=== PATIENT | male | born 1970 | race Hispanic/Latino ===

== ENCOUNTER 2024-09-08 18:52 | Emergency (ER) | payer MEDICARE ==
[~2024-09-08] VITALS: Ht 191.8 cm; Wt 93.0 kg
[2024-09-08] MEDS ORDERED: PREDNISONE 20 MG TAB ONE (19:04)
[2024-09-08] MEDS ORDERED: KETOROLAC TROMETHAMINE 60 MG/2 ML VIAL ONE (19:04)
[2024-09-08] MEDS: KETOROLAC TROMETHAMINE 60 MG/2 ML VIAL IM STA (19:25)
[2024-09-08] MEDS: PREDNISONE 20 MG TAB PO STA (19:26)
[2024-09-08 20:40] VITALS: PULSE 70; RESP 16; TEMP 98.4
[2024-09-08 23:09] VITALS: BP 131/85; PULSE 70; RESP 16; TEMP 98.4; O2SAT 100
== END 2024-09-08 20:15 | disposition home or self-care (01) ==
LOC: ER 19:07
DX: R51.9 Headache, unspecified (principal); M54.2 Cervicalgia; W20.8XXA Other cause of strike by thrown, projected or falling object, initial encounter; Y92.89 Other specified places as the place of occurrence of the external cause
CPT/HCPCS: 70450; 72125; 99283; J1885; J7512

== ENCOUNTER 2024-09-20 19:37 | Emergency (ER) | payer MEDICARE ==
[2024-09-20 19:37] VITALS: PULSE 79; RESP 16; TEMP 98.4
[2024-09-20] MEDS ORDERED: MEDROL4 M2 PO (21:49)
[2024-09-20] MEDS: KETOROLAC TROMETHAMINE 60 MG/2 ML VIAL IM ONE (21:57)
[2024-09-20 21:59] VITALS: BP 122/89; PULSE 78; RESP 16; TEMP 98.3; O2SAT 100
== END 2024-09-20 22:10 | disposition home or self-care (01) ==
LOC: ER 20:40
DX: M54.2 Cervicalgia (principal); M54.6 Pain in thoracic spine; M54.32 Sciatica, left side; G89.29 Other chronic pain; F17.210 Nicotine dependence, cigarettes, uncomplicated
CPT/HCPCS: 70450; 72125; 99283; J1885

== ENCOUNTER 2024-12-01 20:38 | Emergency (ER) | payer MEDICARE, OTHER ==
[~2024-12-01] VITALS: Ht 191.8 cm; Wt 93.0 kg
[~2024-12-01 20:38] MED LIST: MEDROL4 M2 PO
[2024-12-01 21:03] VITALS: PULSE 84; RESP 16; TEMP 98
[2024-12-01] MEDS: KETOROLAC TROMETHAMINE 60 MG/2 ML VIAL IM STA (21:57)
[2024-12-01] MEDS ORDERED: ULTRAM 50MG50 MG PO (23:04)
[2024-12-01] MEDS ORDERED: KETOROLAC TROME10 MG PO (23:04)
[2024-12-01] MEDS ORDERED: CYCLOBENZAPRINE5 MG PO (23:05)
[2024-12-01 23:42] VITALS: BP 135/86; PULSE 76; RESP 16; TEMP 98.1; O2SAT 100
== END 2024-12-01 23:46 | disposition home or self-care (01) ==
LOC: ER 20:41
DX: R51.9 Headache, unspecified (principal); M54.2 Cervicalgia; M54.6 Pain in thoracic spine; M54.50 Low back pain, unspecified; G89.29 Other chronic pain
CPT/HCPCS: 70450; 72125; 72128; 72131; 99283; J1885